=== PATIENT | male | born 1995 | race Native Hawaiian/Other Pacific Islander ===

== ENCOUNTER 2021-06-13 08:19 | Emergency (ER) | payer MEDICAID, OTHER ==
[~2021-06-13] VITALS: Ht 170 cm; Wt 70.0 kg
--- NOTE | 2021-06-13 08:28 | ED Neurological Problem ---
General Source: patient, EMS Exam Limitations: no limitations History of Present Illness Date Seen by Provider: Jun 13, 2021 Time Seen by Provider: 08:18 Initial Comments 26-year-old male with past medical history of seizures and asthma coming in via EMS from home due to a seizure. The patient states he has not taken his medication in over a day which is Keppra. Typically has a seizure every 2 to 3 months. EMS reports he was a little fatigued but not really postictal by the time they arrived. He says he has had a cough for the past couple days and has felt warm at times but never has taken his temperature. Has some nausea which she says is not unusual after he has a seizure but has not vomited. Denies any diarrhea, rash, dysuria, chest pain, shortness of breath, abdominal pain, or any other concerns. Denies any trauma or pain anywhere other than a mild headache which he says is also pretty typical and he had before his seizure. Was witnessed by girlfriend. Of note, he just moved here from [place] and does not have a neurologist yet, but does have some Keppra left over. Glucose was 128 for EMS. Allergies and Home Medications Allergies Coded Allergies: No Known Drug Allergies (Unverified , 06/13/21) Patient Home Medication List Home Medication List Reviewed: Yes Review of Systems Review of Systems Constitutional: chills; No fever; malaise Eyes: Denies Blurred Vision Ears, Nose, Mouth, Throat: no symptoms reported Respiratory: cough; No short of breath Cardiovascular: No chest pain Gastrointestinal: No abdominal pain, No diarrhea; nausea; No vomiting Genitourinary: No dysuria Musculoskeletal: No joint pain Skin: No rash Psychiatric/Neurological: No Symptoms Reported Endocrine: No Symptoms Reported Hematologic/Lymphatic: No Symptoms Reported All Other Systems Reviewed Negative Unless Noted: Yes Past Jljoxgw-Hmucvf-Hbpuik Hx Patient Social History Tobacco Use?: Yes Tobacco type used: Cigarettes Substance use?: No Alcohol Use?: Yes Past Medical History Surgeries: No Physical Exam Vital Signs Capillary Refill : Height, Weight, BMI Height: '" Weight: lbs. oz. kg; BMI Method: General Appearance: WD/WN, no apparent distress HEENT: PERRL/EOMI, normal ENT inspection, TMs normal, pharynx normal, other (No signs of trauma to the head) Neck: non-tender, full range of motion, supple, normal inspection, other (No midline spinal tenderness, full movement of neck) Respiratory: chest non-tender, lungs clear, normal breath sounds, no respiratory distress, no accessory muscle use Cardiovascular: regular rate, rhythm, no edema, no murmur Gastrointestinal: normal bowel sounds, non tender, soft; No distended, No guarding, No rebound Back: normal inspection, no CVA tenderness, no vertebral tenderness Extremities: normal range of motion, non-tender, normal inspection, no pedal edema, no calf tenderness, normal capillary refill 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, no motor/sensory deficits, alert, normal mood/affect, oriented x 3 Crainal Nerves: normal hearing, normal speech Coordination/Gait: normal finger to nose, normal gait Motor/Sensory: no motor deficit, no sensory deficit Skin: normal color, warm/dry Lymphatic: no adenopathy Progress/Results/Core Measures Results/Orders Lab Results Laboratory Tests Test 06/13/21 08:27 Range/Units My Orders Orders - JESSICA JAMISON MD Coronavirus Sars-Cov-2 So 2019 (06/13/21 08:29) Ibuprofen Tablet (Motrin Tablet) (06/13/21 08:30) Levetiracetam Tablet (Keppra Tablet) (06/13/21 08:30) Ondansetron Oral Dissolve Tab (Zofran (06/13/21 08:29) Progress Progress Note : Progress Note 26-year-old male with above history coming in after a seizure with a known seizure history and missing his medications. ABCs were intact, GCS 15, vital stable, and no neuro deficits on exam. Overall he is well-appearing. He does have a cough while I am examining him, but with clear lung sounds and oxygen saturation is greater than 98% on room air. Not vaccinated for Covid, will send a test. Gave him his home seizure medicine as well as ibuprofen and Zofran. No signs of trauma externally. He is back to his mental baseline most importantly. Will refer him to [facility] given he is new to town so that he can have follow-up and refills of his Keppra when he needs it. I believe he is stable for discharge with outpatient follow-up. He was sent home with strict return precautions Departure Impression Primary Impression: Seizure Disposition: HOME, SELF-CARE Condition: Stable Departure-Patient Inst. Decision time for Depature: 08:34 Referrals: CESAR SANCHEZ MD Patient Instructions: Seizures, Adult (DC) Add. Discharge Instructions: You were seen in the emergency department after he had a seizure. In patients that have a seizure disorder, the most common cause of seizures is actually missed medications, and you had mentioned you did not take your medicine last night or this morning yet. This is most likely why you had a seizure. Infections such as the common cold or any virus can also lower your seizure thr eshold and make you seize when you normally would not be. Since she had a cough, we sent a Covid test which should take about a day to get back. You can take Tylenol or ibuprofen for body aches. If you have any other concerns then please come back to the ER. [facility] here in [place]. At the [facility] they see patient's without insurance, and it would be good if you called today to schedule and appointment to be seen as soon as possible so that you can get refills for your keppra and they can refer you to a neurologist if you need. Work/School Note: Work Release Form Date Seen in the Emergency Department: Jun 13, 2021 Return to Work: Jun 14, 2021 Restrictions: No Restrictions JESSICA JAMISON MD Jun 13, 2021 08:28
[2021-06-13] MEDS ORDERED: ONDANSETRON 4 MG (ZOFRAN) ORAL DISSOLVE TAB PO STA (08:29)
[2021-06-13] MEDS ORDERED: IBUPROFEN 600 MG (MOTRIN) TAB PO ONE (08:30)
[2021-06-13 08:49] VITALS: BP 130/55
== END 2021-06-13 08:50 | disposition home or self-care (01) ==
LOC: ER FS 08:20
DX: G40.909 Epilepsy, unspecified, not intractable, without status epilepticus (principal); Z72.0 Tobacco use; Z20.822 Contact with and (suspected) exposure to COVID-19
CPT/HCPCS: 87635

== ENCOUNTER → 2021-07-13 | Outpatient (CLI) | payer OTHER ==
--- NOTE | 2021-07-13 11:07 | Diagnostic Imaging Report ---
INDICATION: Left knee pain COMPARISON: None. FINDINGS: 2 views of the left knee knee joint demonstrate no acute fracture or dislocation. No focal osseous lesions are seen. No significant joint effusion is seen. The surrounding soft tissue structures are unremarkable. There are no radiopaque foreign bodies. IMPRESSION: 1. No acute fractures or dislocations of the left knee knee joint. Dictated by: Dictated on workstation # [id number]
--- NOTE | 2021-07-13 11:07 | Diagnostic Imaging Report ---
INDICATION: Fall. Back pain. COMPARISON: None FINDINGS: Frontal and lateral views of the lumbar spine were obtained. Alignment and vertebral heights are maintained. There is no fracture or destructive process. No significant degenerative disease is noted in the lumbar spine. Limited views of the abdomen demonstrate nonobstructive bowel gas pattern. IMPRESSION: 1. No acute fracture or dislocation of the lumbar spine. Dictated by: Dictated on workstation # [id number]
== END ==
LOC: RAD 10:21 → MERGE 10:21
PROVIDERS: ATTEND Family Medicine
DX: Z02.71 Encounter for disability determination (principal); M54.50 Low back pain, unspecified; M25.562 Pain in left knee; W19.XXXA Unspecified fall, initial encounter
CPT/HCPCS: 72100; 73560

== ENCOUNTER 2023-02-03 20:21 | Emergency (ER) | payer OTHER ==
[~2023-02-03] VITALS: Ht 175.3 cm; Wt 61.2 kg
[2023-02-03] MEDS ORDERED: ONDANSETRON 4 MG/2 ML (SDV) Z0FRAN IVP STA (20:27)
[2023-02-03] MEDS ORDERED: KETOROLAC 15 MG/ML VIAL IVP STA (20:27)
[2023-02-03] MEDS ORDERED: NS IV 1000 ML 1,000 ML IV SCH (20:30)
[2023-02-03 20:34] LABS: BASOPHILS # (AUTO) 0.1 10^3/uL (0.0-0.1); BASOPHILS % (AUTO) 0 % (0-10); EOSINOPHILS # (AUTO) 0.1 10^3/uL (0.0-0.3); EOSINOPHILS % (AUTO) 0 % (0-10); HEMATOCRIT 47 % (40-54); HEMOGLOBIN 15.6 g/dL (13.3-17.7); LYMPHOCYTES # (AUTO) 5.9 10^3/uL (1.0-4.0); LYMPHOCYTES % (AUTO) 34 % (12-44); MEAN CORPUSCULAR HEMOGLOBIN 29 pg (25-34); MEAN CORPUSCULAR HGB CONC 33 g/dL (32-36); MEAN CORPUSCULAR VOLUME 89 fL (80-99); MEAN PLATELET VOLUME 9.6 fL (9.0-12.2); MONOCYTES % (AUTO) 6 % (0-12); NEUTROPHILS # (AUTO) 10.6 10^3/uL (1.8-7.8); NEUTROPHILS % (AUTO) 60 % (42-75); PLATELET COUNT 314 10^3/uL (130-400); WHITE BLOOD COUNT 17.6 10^3/uL (4.3-11.0)
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
[2023-02-03] MEDS ORDERED: NS 100 ML (IVPB) BAG IV ONE (20:45)
[2023-02-03] MEDS ORDERED: CATHETER FLUSH 10 ML SYR IV PRN (20:45)
[2023-02-03] MEDS ORDERED: HOLD METFORMIN - RECEIVED CONTRAST 20 ML VIAL IV SCH (20:45)
[2023-02-03] MEDS ORDERED: IOHEXOL 350 MG/ML 100 ML (OMNIPAQUE 350) VIAL IV ONE (20:45)
[2023-02-03 20:51] LABS: BUN/CREATININE RATIO 16; CALCIUM 9.7 MG/DL (8.5-10.1); CHLORIDE 99 MMOL/L (98-107); CREATININE SERUM 1.27 MG/DL (0.60-1.30); GFR ESTIMATED 79; GLUCOSE 125 MG/DL (70-105); POTASSIUM 4.2 MMOL/L (3.6-5.0); SODIUM 138 MMOL/L (135-145)
[2023-02-03 20:52] LABS: ACETAMINOPHEN < 10 UG/ML (10-30); ALANINE AMINOTRANSFERASE 25 U/L (0-55); ALBUMIN 4.8 GM/DL (3.2-4.5); ALKALINE PHOSPHATASE 64 U/L (40-136); BILIRUBIN,TOTAL 0.8 MG/DL (0.1-1.0); SALICYLATE < 0.3 MG/DL (5.0-20.0); TOTAL PROTEIN 7.7 GM/DL (6.4-8.2)
[2023-02-03 20:54] LABS: CARBON DIOXIDE 8 MMOL/L (21-32)
[2023-02-03 20:59] LABS: EOSINOPHILS % (MANUAL) 1 %; LYMPHOCYTES % (MANUAL) 30 %; MONOCYTES % (MANUAL) 4 %; NEUTROPHILS % (MANUAL) 65 %
--- NOTE | 2023-02-03 21:13 | Diagnostic Imaging Report ---
PROCEDURE: CT head and CT cervical spine without contrast. TECHNIQUE: Multiple contiguous axial images were obtained through the brain and cervical spine without the use of intravenous contrast. Sagittal and coronal reformations through the cervical spine were then performed. Auto Exposure Controls were utilized during the CT exam to meet ALARA standards for radiation dose reduction. INDICATION: Headache, seizure activity and syncope. FINDINGS: CT HEAD: CT images of the head were obtained. Study is somewhat limited by motion. Ventricles and sulci are within normal limits for size. There is no intracranial hemorrhage identified. There is no abnormal mass effect or shift of midline structures. Periapical lucencies are noted within right maxillary alveolar ridge. IMPRESSION: Unremarkable CT of the head. There is poor dentition and dental consultation would be useful. CT CERVICAL SPINE: Multiple contiguous axial CT images of the cervical spine were obtained with sagittal and coronal reformatted images produced. The cervical curvature and alignment are within normal limits. The vertebral body heights and disc spaces are maintained without evidence of fracture or subluxation. There is no paraspinous hematoma. Note is made of apical pulmonary bulla. IMPRESSION: No CT evidence of acute cervical spinal abnormality. There are apical pulmonary bulla present. Dictated by: Dictated on workstation # [id number]
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
[2023-02-03] MEDS ORDERED: ORPHENADRINE 60 MG/2 ML (NORFLEX) AMP (ED ONLY) IVP STA (21:34)
[2023-02-03] MEDS ORDERED: METH-732 PO (21:36)
[2023-02-03] MEDS ORDERED: IBUP-1773 PO (21:36)
[2023-02-03 21:47] VITALS: BP 104/67
== END 2023-02-03 21:46 | disposition home or self-care (01) ==
LOC: EDUNIT# 20:21 → ER FS 20:23
DX: S00.83XA Contusion of other part of head, initial encounter (principal); S30.1XXA Contusion of abdominal wall, initial encounter; S20.219A Contusion of unspecified front wall of thorax, initial encounter; R00.0 Tachycardia, unspecified; K02.9 Dental caries, unspecified; F17.210 Nicotine dependence, cigarettes, uncomplicated; G40.909 Epilepsy, unspecified, not intractable, without status epilepticus; Z79.899 Other long term (current) drug therapy; Z28.311 Partially vaccinated for COVID-19; V47.5XXA Car driver injured in collision with fixed or stationary object in traffic accident, initial encounter; Y92.410 Unspecified street and highway as the place of occurrence of the external cause
CPT/HCPCS: 36415; 70450; 71260; 72125; 74177; 80053; 85007; 85027; 93041; 99284; G0480 ×3; 80320; 80329

== ENCOUNTER 2023-02-24 15:24 | Emergency (ER) | payer OTHER ==
[~2023-02-24 15:24] MED LIST: IBUP-1773 PO; METH-732 PO
[2023-02-24] MEDS ORDERED: NS IV 1000 ML 1,000 ML IV SCH ×2 (15:30→16:30)
[2023-02-24] MEDS ORDERED: LIDOCAINE UROJET 2% GEL 10 ML PKG TOP ONE (15:30)
[2023-02-24] MEDS ORDERED: NALOXONE 0.4 MG/ML 1 ML (NARCAN) VIAL IV ONE (15:30)
[2023-02-24 15:33] LABS: BILIRUBIN,URINE NEGATIVE (NEGATIVE); CLARITY,URINE CLEAR; COLOR,URINE YELLOW; GLUCOSE, URINE (UA) NEGATIVE (NEGATIVE); KETONES,URINE NEGATIVE (NEGATIVE); LEUKOCYTE ESTERASE ,URINE NEGATIVE (NEGATIVE); NITRITE,URINE NEGATIVE (NEGATIVE); PH,URINE 5.5 (5-9); PROTEIN,URINE 2+ (NEGATIVE)
[2023-02-24 15:35] LABS: BACTERIA,URINE MODERATE /HPF
[2023-02-24 15:42] LABS: AMPHETAMINE SCREEN, URINE NEGATIVE (NEGATIVE); BARBITURATE SCREEN URINE NEGATIVE (NEGATIVE); BENZODIAZEPINES SCREEN URINE NEGATIVE (NEGATIVE); CANNABINOID SCREEN, URINE POSITIVE (NEGATIVE); COCAINE SCREEN URINE NEGATIVE (NEGATIVE); METHADONE STAT NEGATIVE (NEGATIVE); OPIATE SCREEN URINE NEGATIVE (NEGATIVE); OXYCODONE STAT NEGATIVE (NEGATIVE); PROPOXYPHENE STAT NEGATIVE (NEGATIVE); TRICYCLIC ANTIDEPRESSANTS SCRE NEGATIVE (NEGATIVE)
[2023-02-24] MEDS ORDERED: NS IV 1000 ML 1,000 ML ONE (15:45)
[2023-02-24 15:52] LABS: BASOPHILS # (AUTO) 0.1 10^3/uL (0.0-0.1); BASOPHILS % (AUTO) 0 % (0-10); EOSINOPHILS # (AUTO) 0.2 10^3/uL (0.0-0.3); EOSINOPHILS % (AUTO) 1 % (0-10); HEMATOCRIT 53 % (40-54); HEMOGLOBIN 16.7 g/dL (13.3-17.7); LYMPHOCYTES # (AUTO) 6.8 10^3/uL (1.0-4.0); LYMPHOCYTES % (AUTO) 26 % (12-44); MEAN CORPUSCULAR HEMOGLOBIN 30 pg (25-34); MEAN CORPUSCULAR HGB CONC 32 g/dL (32-36); MEAN CORPUSCULAR VOLUME 94 fL (80-99); MEAN PLATELET VOLUME 9.7 fL (9.0-12.2); MONOCYTES # (AUTO) 1.1 10^3/uL (0.0-1.0); MONOCYTES % (AUTO) 4 % (0-12); NEUTROPHILS # (AUTO) 17.2 10^3/uL (1.8-7.8); NEUTROPHILS % (AUTO) 67 % (42-75); PLATELET COUNT 369 10^3/uL (130-400); WHITE BLOOD COUNT 25.8 10^3/uL (4.3-11.0)
--- NOTE | 2023-02-24 15:54 | ED Neurological Problem ---
General Stated Complaint: SEIZURE History of Present Illness Date Seen by Provider: Feb 24, 2023 Time Seen by Provider: 15:24 Initial Comments 27-year-old male with PMH of SZD/ Asthma, is brought in by EMS with c/ three seizures since 13:00 today afternoon. Patient's girlfriend called 911 after the third seizure. Pt was post-ictal when EMS was on scene. In the ER pt is extremely combative and took four of us to hold him down. EMS and police urgently called to ER to assist since this is a stand alone ER with minimal staff to handle a combative pt. Allergies and Home Medications Allergies Coded Allergies: No Known Drug Allergies (Unverified , 06/13/21) Patient Home Medication List Home Medication List Reviewed: Yes Ibuprofen (Ibuprofen) 600 Mg Tablet, 600 MG PO Q6H PRN for PAIN/INFLAMMATION Prescribed by: ANSON MYERS on 02/03/232135 Methocarbamol (Methocarbamol) 750 Mg Tablet, 750 MG PO Q6H PRN for MUSCLE SPASMS Prescribed by: ANSON MYERS on 02/03/232135 Review of Systems Review of Systems Constitutional: see HPI Psychiatric/Neurological: Other (seizures) Past [place]ycbwu-[place]con[place] Hx Immunizations Up To Date First/Initial COVID19 Vaccinat: 2020 Second COVID19 Vaccination Ashwin: NONE Third COVID19 Vaccination Date: NONE Past Medical History Surgery/Hospitalization HX: ASTHMA AND SEIZURES Surgeries: No Physical Exam Vital Signs Vital Signs - First Documented 02/24/23 15:24 Temp 36.2 Pulse 125 Resp 12 B/P (MAP) 125/92 (103) Pulse Ox 93 O2 Delivery OxyMask Capillary Refill : Height, Weight, BMI Height: '" Weight: lbs. oz. kg; 19.00 BMI Method: General Appearance: thin, other (Patient is postictal and intermittently combative, vitals stable. Patient's O2 sats were at 93% on room air, with occasional drops when patient becomes combative.) Neck: full range of motion, supple Respiratory: chest non-tender, lungs clear, normal breath sounds, no respiratory distress Cardiovascular: tachycardia Gastrointestinal: normal bowel sounds, soft Extremities: normal range of motion Neurologic/Psychiatric: alert (Alert to painful stimuli) Focused Exam Lactate Level 02/24/23 15:51: Lactic Acid Level 21.70*H Lactic Acid Level Laboratory Tests Test 02/24/23 15:51 Lactic Acid Level 21.70 MMOL/L (0.50-2.00) *H Progress/Results/Core Measures Results/Orders Lab Results Laboratory Tests Test 02/24/23 15:32 02/24/23 15:51 Range/Units Urine Color YELLOW Urine Clarity CLEAR Urine pH 5.5 5-9 Urine Specific [place] >=1.030 1.016-1.022 Urine Protein 2+ H NEGATIVE Urine Glucose (UA) NEGATIVE NEGATIVE Urine Ketones NEGATIVE NEGATIVE Urine Nitrite NEGATIVE NEGATIVE Urine Bilirubin NEGATIVE NEGATIVE Urine Urobilinogen 0.2 < = 1.0 MG/DL Urine Leukocyte Esterase NEGATIVE NEGATIVE Urine RBC (Auto) 3+ H NEGATIVE Urine RBC 5-10 H /HPF Urine WBC NONE /HPF Urine Crystals NONE /LPF Urine Bacteria MODERATE H /HPF Urine Casts NONE /LPF Urine Mucus NEGATIVE /LPF Urine Culture Indicated YES Urine Opiates Screen NEGATIVE NEGATIVE Urine Oxycodone Screen NEGATIVE NEGATIVE Urine Methadone Screen NEGATIVE NEGATIVE Urine Propoxyphene Screen NEGATIVE NEGATIVE Urine Barbiturates Screen NEGATIVE NEGATIVE Ur Tricyclic Antidepressants Screen NEGATIVE NEGATIVE Urine Phencyclidine Screen NEGATIVE NEGATIVE Urine Amphetamines Screen NEGATIVE NEGATIVE Urine Methamphetamines Screen NEGATIVE NEGATIVE Urine Benzodiazepines Screen NEGATIVE NEGATIVE Urine Cocaine Screen NEGATIVE NEGATIVE Urine Cannabinoids Screen POSITIVE H NEGATIVE White Blood Count 25.8 H 4.3-11.0 10^3/uL Red Blood Count 5.60 H 4.30-5.52 10^6/uL Hemoglobin 16.7 13.3-17.7 g/dL Hematocrit 53 40-54 % Mean Corpuscular Volume 94 80-99 fL Mean Corpuscular Hemoglobin 30 25-34 pg Mean Corpuscular Hemoglobin Concent 32 32-36 g/dL Red Cell Distribution Width 12.4 10.0-14.5 % Platelet Count 369 130-400 10^3/uL Mean Platelet Volume 9.7 9.0-12.2 fL Immature Granulocyte % (Auto) 1 % Neutrophils (%) (Auto) 67 42-75 % Lymphocytes (%) (Auto) 26 12-44 % Monocytes (%) (Auto) 4 0-12 % Eosinophils (%) (Auto) 1 0-10 % Basophils (%) (Auto) 0 0-10 % Neutrophils # (Auto) 17.2 H 1.8-7.8 10^3/uL Lymphocytes # (Auto) 6.8 H 1.0-4.0 10^3/uL Monocytes # (Auto) 1.1 H 0.0-1.0 10^3/uL Eosinophils # (Auto) 0.2 0.0-0.3 10^3/uL Basophils # (Auto) 0.1 0.0-0.1 10^3/uL Immature Granulocyte # (Auto) 0.4 H 0.0-0.1 10^3/uL Neutrophils % (Manual) 74 % Lymphocytes % (Manual) 20 % Monocytes % (Manual) 4 % Eosinophils % (Manual) 1 % Band Neutrophils 1 % Sodium Level 145 135-145 MMOL/L Potassium Level 4.1 3.6-5.0 MMOL/L Chloride Level 104 98-107 MMOL/L Carbon Dioxide Level 5 *L 21-32 MMOL/L Anion Gap 36 H 5-14 MMOL/L Blood Urea Nitrogen 11 7-18 MG/DL Creatinine 1.58 H 0.60-1.30 MG/DL Estimat Glomerular Filtration Rate 61 BUN/Creatinine Ratio 7 Glucose Level 203 H 70-105 MG/DL Lactic Acid Level 21.70 *H 0.50-2.00 MMOL/L Calcium Level 10.6 H 8.5-10.1 MG/DL Corrected Calcium 8.5-10.1 MG/DL Total Bilirubin 0.3 0.1-1.0 MG/DL Aspartate Amino Transf (AST/SGOT) 33 5-34 U/L Alanine Aminotransferase (ALT/SGPT) 18 0-55 U/L Alkaline Phosphatase 80 40-136 U/L Troponin I < 0.30 <0.30 NG/ML Total Protein 8.5 H 6.4-8.2 GM/DL Albumin 5.3 H 3.2-4.5 GM/DL Serum Alcohol < 10 <10 MG/DL My Orders Orders - VALERIA FISHER MD Alcohol (02/24/23 15:27) Cbc With Automated Diff (02/24/23 15:27) Comprehensive Metabolic Panel (02/24/23 15:27) Drug Screen Stat (Urine) (02/24/23 15:27) Lactic Acid Analyzer (02/24/23 15:27) Ua Culture If Indicated (02/24/23 15:27) Troponin I Fs (02/24/23 15:27) Catheter(Urinary) Insert & Ass 03,15 (02/24/23 15:28) Lidocaine 2% (Urojet) (Xylocaine Urojet) (02/24/23 15:30) Continuous Ekg Monitoring (02/24/23 15:28) Ekg Tracing (02/24/23 15:28) Naloxone Injection (Narcan Injection) (02/24/23 15:30) Levetiracetam Injection (Keppra Injectio (02/24/23 15:29) Urine Culture (02/24/23 15:32) Ed Iv/Invasive Line Start (02/24/23 15:30) Ns Iv 1000 Ml (Sodium Chloride 0.9%) (02/24/23 15:30) Chest 1 View Ap/Pa Only (02/24/23 ) Ns Iv 1000 Ml (Sodium Chloride 0.9%) (02/24/23 15:45) Manual Differential (02/24/23 15:51) Fentanyl Inj (Sublimaze Injection) (02/24/23 15:59) Propofol Drip (Icu) (Diprivan Drip (Icu) (02/24/23 16:01) Fentanyl Inj (Sublimaze Injection) (02/24/23 15:59) Propofol Drip (Icu) (Diprivan Drip (Icu) (02/24/23 16:01) Ct Head Wo (02/24/23 16:08) Ed Iv/Invasive Line Start (02/24/23 16:20) Ns Iv 1000 Ml (Sodium Chloride 0.9%) (02/24/23 16:30) Lorazepam Injection (Ativan Injection) (02/24/23 16:27) Ketamine Injection (Ketalar Injection) (02/24/23 16:30) Rocuronium 5 Ml Syringe (Rocuronium 5 Ml (02/24/23 16:30) Succinylcholine Injection (Succinylcholi (02/24/23 16:30) Levetiracetam Injection (Keppra Injectio (02/24/23 16:47) Lorazepam Injection (Ativan Injection) (02/24/23 17:00) Lorazepam Injection (Ativan Injection) (02/24/23 16:56) Lorazepam Injection (Ativan Injection) (02/24/23 17:15) Medications Given in ED Current Medications Medications Dose Ordered Sig/Elijah Route Start Time Stop Time Status Last Admin Dose Admin Ketamine HCl 60 mg ONCE ONCE IV 02/24/23 16:30 02/24/23 16:36 DC 02/24/23 15:44 60 MG Lorazepam 1 mg ONCE ONCE IVP 02/24/23 17:00 02/24/23 17:01 DC 02/24/23 16:56 1 MG Lorazepam 2 mg STK-MED ONCE .ROUTE 02/24/23 16:27 02/24/23 16:31 DC 02/24/23 16:28 2 MG Rocuronium Ogema 20 mg ONCE ONCE IV 02/24/23 16:30 02/24/23 16:37 DC 02/24/23 15:44 20 MG Succinylcholine Chloride 100 mg ONCE ONCE INJ 02/24/23 16:30 02/24/23 16:37 DC 02/24/23 15:44 100 MG Vital Signs/I&O 02/24/23 02/24/23 02/24/23 15:24 16:15 17:21 Temp 36.2 Pulse 125 84 84 Resp 12 16 B/P (MAP) 125/92 (103) 104/84 111/76 Pulse Ox 93 100 O2 Delivery OxyMask Mechanical Ventilator Progress Progress Note : Progress Note 1. ACUTE SEIZURES/ POST-ICTAL & COMBATIVE: -Patient has been combative since entering the ER, and took 4 of us to hold her down so that he would not rip out his IV lines and oxygen mask even after being given Ativan. EMS and police were called to help assist. Patient was quickly intubated by EMS with ketamine/swetha/succs. -Mariscal catheter inserted - Medications given in ER: Fentanyl 100mcg/ Keppra iv 2400mg (40mg/kg body weight, with weight approximated at 60kg) - NS IVF bolus x2 in the ER - Patient had 1 seizure in the ER after intubation which lasted approximately 3 to 4 minutes, Ativan 1 mg was given. -Urine drug screen is positive for marijuana only and serum alcohol level is less than 10. White count is elevated at 25 with a left shift, which is likely due to seizure activity. -Unknown trigger for seizures, although dehydration may be a factor - Creatinine is elevated at 1.58 and lactic acid is 21.7, electrolytes unremarkable - EKG: sinus tachycardia - CT head ordered but not done - Five seizures post-intubation in the ER, while on a propofol drip, with an additional total of 5mg of Ativan given in multiple doses during seizures (1mg of which was given by EMS). Pt was also given 2400mg of Keppra - [facility] was called for urgent transfer for admission to ICU at 15:24. Since they were busy and unable to urgently accept, called [facility] transfer line at 16:56 and was accepted for an ER to ER transfer to [facility]. Dr. Olmos; accepting physician. Initial ECG Impression Date: Feb 24, 2023 Initial ECG Impression Time: 15:58 Initial ECG Rate: 132 Initial ECG Rhythm: S.Tach Initial ECG Comparisson: No Previous ECG Available Diagnostic Imaging Diagonstic Imaging: Xray, CT Plain Films/CT/US/NM/MRI: chest, head Comments [facility], [place] NAME: LAILA GONZALEZ D Penny MED REC#: [id number] PT STATUS: REG ER : 1995 PHYSICIAN: VALERIA FISHER MD ADMIT DATE: 02/24/23/ER FS Signed Date of Exam:02/24/23 CHEST 1 VIEW AP/PA ONLY EXAMINATION: Chest radiograph, portable AP view. DATE: 02/24/2023 3:57 PM INDICATION: 27-year-old male, seizures. COMPARISON: None. FINDINGS: Heart size and mediastinal contours are unremarkable. There is no identified pneumothorax. There is no large pleural effusion. There is no identified focal airspace consolidation. There is an endotracheal tube below the thoracic inlet and above the chani. IMPRESSION: 1. No identified acute cardiopulmonary abnormality. 2. Endotracheal tube is below the thoracic inlet and above the chani. Dictated by: Dictated on workstation # [id number] Dict: 02/24/23 1607 Trans: 02/24/231618 [facility] [id number] Interpreted by: SHANNA SPRINGER MD Electronically signed by: SHANNA SPRINGER MD 02/24/23 1619 Critical Care Note Critical Care Start Time: 15:24 (From the time patient entered the ER) Stop Time: 17:19 Progress Patient is extremely combative in the ER and took four of us staff to hold him down with great difficulty, while police and EMS was called in urgently to help assist. EMS helped with urgent intubation with ketamine/succs/ swetha, with ETT 7 .5, 23 at the teeth, with a confirmatory chest x-ray done. -Patient had a total of 5 seizures in the ER post intubation. See plan for more details. Vitals remained stable. Departure Impression Primary Impression: Seizure Additional Impressions: Dehydration Endotracheally intubated Disposition: XFER SHT-TRM HOSP Condition: Critical Transfer Transfer Reason: Exceeds level of care Time Spoke to Accepting Phy: 15:53 Transfer Progress Notes Accepted for ER to ER transfer at [facility], Dr. Olmos is the accepting ER physician Transfer Facility: [facility] Method of Transfer: Air Departure-Patient Inst. Referrals: NO,LOCAL PHYSICIAN (PCP/Family) Primary Care Physician VALERIA FISHER MD Feb 24, 2023 15:53
[2023-02-24] MEDS ORDERED: fentaNYL INJ 100 MCG/2 ML AMP ONE (15:59)
[2023-02-24] MEDS ORDERED: fentaNYL INJ 100 MCG/2 ML AMP IVP STA (15:59)
[2023-02-24] MEDS ORDERED: PROPOFOL DRIP (ICU) 100 ML IV STA (16:01)
[2023-02-24] MEDS ORDERED: PROPOFOL DRIP (ICU) 100 ML IV ONE (16:01)
--- NOTE | 2023-02-24 16:09 | Diagnostic Imaging Report ---
EXAMINATION: Chest radiograph, portable AP view. DATE: 02/24/2023 3:57 PM INDICATION: 27-year-old male, seizures. COMPARISON: None. FINDINGS: Heart size and mediastinal contours are unremarkable. There is no identified pneumothorax. There is no large pleural effusion. There is no identified focal airspace consolidation. There is an endotracheal tube below the thoracic inlet and above the chani. IMPRESSION: 1. No identified acute cardiopulmonary abnormality. 2. Endotracheal tube is below the thoracic inlet and above the chani. Dictated by: Dictated on workstation # [id number]
[2023-02-24 16:13] LABS: BUN/CREATININE RATIO 7; CHLORIDE 104 MMOL/L (98-107); CREATININE SERUM 1.58 MG/DL (0.60-1.30); GFR ESTIMATED 61; GLUCOSE 203 MG/DL (70-105); POTASSIUM 4.1 MMOL/L (3.6-5.0); SODIUM 145 MMOL/L (135-145)
[2023-02-24 16:14] LABS: ALANINE AMINOTRANSFERASE 18 U/L (0-55); ALBUMIN 5.3 GM/DL (3.2-4.5); ALKALINE PHOSPHATASE 80 U/L (40-136); BILIRUBIN,TOTAL 0.3 MG/DL (0.1-1.0); CALCIUM 10.6 MG/DL (8.5-10.1); TOTAL PROTEIN 8.5 GM/DL (6.4-8.2)
[2023-02-24 16:21] LABS: CARBON DIOXIDE 5 MMOL/L (21-32)
[2023-02-24] MEDS ORDERED: LORazepam INJ 2 MG/ML (ATIVAN) VIAL ONE ×3 (16:27→18:00)
[2023-02-24] MEDS ORDERED: ROCURONIUM 10 MG/ML 5 ML SYRINGE IV ONE (16:30)
[2023-02-24] MEDS ORDERED: SUCCINYLCHOLINE INJ 100 MG/5 ML SYR/VIAL INJ ONE (16:30)
[2023-02-24] MEDS ORDERED: KETAMINE HCL 100 MG/ML 5 ML VIAL IV ONE (16:30)
[2023-02-24 16:34] LABS: BAND NEUTROPHILS 1 %; EOSINOPHILS % (MANUAL) 1 %; LYMPHOCYTES % (MANUAL) 20 %; MONOCYTES % (MANUAL) 4 %; NEUTROPHILS % (MANUAL) 74 %
[2023-02-24] MEDS ORDERED: LORazepam INJ 2 MG/ML (ATIVAN) VIAL IVP ONE ×2 (17:00→17:15)
[2023-02-24 17:21] VITALS: BP 111/76
== END 2023-02-24 17:35 | disposition short-term general hospital (02) ==
LOC: EDUNIT# 15:24 → ER FS 15:26
DX: G40.909 Epilepsy, unspecified, not intractable, without status epilepticus (principal); E86.0 Dehydration; D72.829 Elevated white blood cell count, unspecified; R00.0 Tachycardia, unspecified; R79.89 Other specified abnormal findings of blood chemistry; Z98.890 Other specified postprocedural states; Z28.311 Partially vaccinated for COVID-19
CPT/HCPCS: 31500; 36415; 51702; 71045; 80053; 80306; 81000; 83605; 84484; 85007; 85027; 87088; 94002; 99285; G0480; 80320; 93005